=== PATIENT | female | born 1960 | race Caucasian/White ===

== ENCOUNTER 2024-01-06 17:57 | Emergency (ER) | payer BC ==
[2024-01-06] MEDS ORDERED: Ondansetron PF 4 MG/2 ML Vial ONE (18:22)
[2024-01-06] MEDS ORDERED: Ketorolac Tromethamine 30 MG (1 mL) VIAL ONE (18:23)
== END 2024-01-06 21:18 | disposition home or self-care (01) ==
LOC: CSHERS 17:57
DX: K57.90 Diverticulosis of intestine, part unspecified, without perforation or abscess without bleeding (principal); I10 Essential (primary) hypertension; E78.5 Hyperlipidemia, unspecified; F17.210 Nicotine dependence, cigarettes, uncomplicated; Z55.6 Problems related to health literacy
CPT/HCPCS: 71045; 74177; 96374; 96375; J1885; J2405